=== PATIENT | male | born 1970 | race Caucasian/White ===

== ENCOUNTER 2016-07-21 14:36 | Emergency (ER) | payer BC ==
[2016-07-21 15:43] VITALS: BP 119/66
[2016-07-21] MEDS ORDERED: Acetaminophen TAB* 325 MG PO ONE (16:17)
[2016-07-21] MEDS ORDERED: Ondansetron ODT TAB* 4 MG PO ONE (16:17)
--- NOTE | 2016-07-21 16:17 | UC ---
Abdominal Pain Male HPI - HPI Summary HPI Summary: 46 yo male with the onset of f/c, fatigue, nausea and vomiting x 1, diarrhea x1 no abd pain no UTI symptoms - History of Current Complaint Chief Complaint: UCGeneralIllness Stated Complaint: CHILLS, WEAK Time Seen by Provider: 07/21/16 16:09 Hx Obtained From: Patient Onset/Duration: Sudden Onset, Lasting Hours Timing: Constant Severity Initially: Mild Severity Currently: Mild Pain Intensity: 0 Pain Scale Used: 0-10 Numeric Location: Other - NA Character: Other - none Aggravating Factor(s):: Nothing Alleviating Factor(s): Nothing Associated Signs And Symptoms: Positive: Fever - ozzy, Vomiting, Diarrhea - Allergies/Home Medications Allergies/Adverse Reactions: Allergies Allergy/AdvReac Type Severity Reaction Status Date / Time No Known Allergies Allergy Verified 07/21/16 15:37 Home Medications: Home Medications Omeprazole CAP* [Prilosec CAP* 20 MG] 20 mg PO DAILY 07/21/16 [History Confirmed 07/21/16] PMH/Surg Hx/FS Hx/Imm Hx Previously Healthy: Yes Neurological History Of: Reports: CVA - "MILD", NO SEQUELLI per pt - Surgical History Surgical History: Yes Surgery Procedure, Year, and Place: sling procedure to left eye 1974 - Family History Known Family History: Positive: Hypertension - Social History Alcohol Use: Weekly Alcohol Amount: 2 beers a week Substance Use Type: None Smoking Status (MU): Never Smoked Tobacco Review of Systems Constitutional: Fever, Chills, Fatigue Skin: Negative Eyes: Negative ENT: Negative Respiratory: Negative Cardiovascular: Negative Gastrointestinal: Vomiting, Diarrhea Genitourinary: Negative Motor: Negative Neurovascular: Negative Musculoskeletal: Negative Neurological: Negative Psychological: Negative All Other Systems Reviewed And Are Negative: Yes Physical Exam Triage Information Reviewed: Yes Appearance: Well-Appearing, No Pain Distress, Well-Nourished Vital Signs: Initial Vital Signs Temp 101.1 F 07/21/16 15:38 Pulse 103 07/21/16 15:38 Resp 16 07/21/16 15:38 BP 119/66 07/21/16 15:38 Pulse Ox 98 07/21/16 15:38 Vital Signs Reviewed: Yes Eyes: Positive: Conjunctiva Clear ENT: Positive: Hearing grossly normal, Pharynx normal, TMs normal. Negative: Pharyngeal erythema, Nasal congestion, Nasal drainage, Tonsillar swelling, Tonsillar exudate, Trismus, Muffled/hoarse voice Dental: Negative: Dental Fracture @, Abscess @ Neck: Positive: Supple, Nontender, No Lymphadenopathy Respiratory: Positive: Lungs clear, Normal breath sounds, No respiratory distress, No accessory muscle use Cardiovascular: Positive: RRR, No Murmur Abdomen Description: Positive: Nontender, No Organomegaly, Soft. Negative: Bruit, CVA Tenderness (R), CVA Tenderness (L) Bowel Sounds: Positive: Present Musculoskeletal: Positive: ROM Intact, No Edema Neurological: Positive: Alert Psychological Exam: Normal Skin Exam: Normal Abd Pain Male Course/Dx - Differential Dx/Clinical Impression Provider Diagnoses: acute gastroenteritis Discharge - Discharge Plan Condition: Stable Disposition: HOME Prescriptions: Ondansetron TAB* [Zofran Tab*] 4 mg PO Q6H PRN #10 tab PRN Reason: Nausea Patient Education Materials: Gastroenteritis (ED) Forms: *Work Release Referrals: No Primary Care Phys,NOPCP [Primary Care Provider] - Additional Instructions: rest clear liquids for now advance diet as tolerated recheck for new or worsening symptoms
== END 2016-07-21 16:35 | disposition home or self-care (01) ==
LOC: UCCORT 14:36
DX: K52.9 Noninfective gastroenteritis and colitis, unspecified (principal); Z86.73 Personal history of transient ischemic attack (TIA), and cerebral infarction without residual deficits
CPT/HCPCS: 99202; A9270-GY; G0463